=== PATIENT | male | born 1960 | race Caucasian/White ===

== ENCOUNTER 2017-11-16 21:38 | Emergency (ER) | payer OTHER ==
--- NOTE | 2017-11-16 22:19 | ER Document Report ---
HPI - HPI Patient complains to provider of: Blood draw Onset: Other - Patient was injured at work his blood was on a box that another person was exposed to. Quality of pain: No pain Pain Level: Denies Associated Symptoms: None Exacerbated by: Denies Relieved by: Denies Similar symptoms previously: No Recently seen / treated by doctor: No - ROS ROS below otherwise negative: Yes - CONSTITUTIONAL Constitutional: DENIES: Fever, Chills - EENT EENT: DENIES: Sore Throat, Ear Pain, Nasal Drainage-Clear, Nasal Drainage- Purulent, Congestion, Eye problems - NEURO Neurology: DENIES: Headache, Weakness, Vision blurred, Dizzinesss / Vertigo - CARDIOVASCULAR Cardiovascular: DENIES: Chest pain - RESPIRATORY Respiratory: DENIES: Trouble Breathing, Coughing - GASTROINTESTINAL Gastrointestinal: DENIES: Abdominal Pain, Nausea, Patient vomiting, Diarrhea, Constipation, Black / Bloody Stools - REPRODUCTIVE Reproductive: DENIES: :, Postmenopausal, Abnormal bleeding / discharge - MUSCULOSKELETAL Musculoskeletal: DENIES: Extremity pain, Back Pain, Neck Pain, Swelling - DERM Skin Color: Normal Skin Problems: None Past Medical History - General Information source: Patient - Social History Smoking Status: Current Every Day Smoker Cigarette use (# per day): Yes - 2 packs per day Chew tobacco use (# tins/day): No Smoking Education Provided: Yes - 4 minutes Frequency of alcohol use: Heavy - Several beer a day Drug Abuse: None Occupation: [employer] Lives with: Family Family History: Reviewed & Not Pertinent Patient has suicidal ideation: No Patient has homicidal ideation: No - Past Medical History Cardiac Medical History: Reports: None Pulmonary Medical History: Reports: None EENT Medical History: Reports: None Neurological Medical History: Reports: None Endocrine Medical History: Reports: None Renal/ Medical History: Reports: None Malignancy Medical History: Reports None GI Medical History: Reports: None Musculoskeltal Medical History: Reports Hx Musculoskeletal Trauma - Back injury Skin Medical History: Reports None Psychiatric Medical History: Reports: None Traumatic Medical History: Reports: None Infectious Medical History: Reports: None Surgical Hx: Negative Past Surgical History: Reports: None Vertical Provider Document - CONSTITUTIONAL Agree With Documented VS: Yes Exam Limitations: No Limitations General Appearance: WD/WN - INFECTION CONTROL TRAVEL OUTSIDE OF THE [place] IN LAST 30 DAYS: No - HEENT HEENT: Atraumatic, Normal ENT Exam, PERRLA - NECK Neck: Normal Inspection, Supple - RESPIRATORY Respiratory: Breath Sounds Normal, No Respiratory Distress - CARDIOVASCULAR Cardiovascular: Regular Rate, Regular Rhythm - MUSCULOSKELETAL/EXTREMETIES Musculoskeletal/Extremeties: MAEW, FROM, Tender - Small laceration to right ring finger - NEURO Level of Consciousness: Awake, Alert, Appropriate - DERM Integumentary: Warm, Dry, Laceration - Scabbed over sores to arm small laceration to right ring finger Course - Re-evaluation Re-evalutation: 11/16/17 22:29 Patient was sent to the emergency room by Alice to get a HIV test drawn due to him cutting his finger at work today and some blood getting on a box that contaminated another person. Patient does have a small laceration to his right ring finger. This laceration was cleaned with surgical scrub, bacitracin applied, and a Band-Aid applied - Vital Signs Vital signs: Temp Pulse Resp BP Pulse Ox 98.5 F 87 18 142/80 H 96 11/16/17 21:42 11/16/17 21:42 11/16/17 21:42 11/16/17 21:42 11/16/17 21:42 Discharge - Discharge Clinical Impression: Blood draw Laceration of right ring finger Qualifiers: Encounter type: initial encounter Damage to nail status: without damage Foreign body presence: without foreign body Qualified Code(s): S61.214A - Laceration without foreign body of right ring finger without damage to nail, initial encounter Condition: Stable Disposition: HOME, SELF-CARE Instructions: Family Physicians / Practices Additional Instructions: You were seen today for a blood draw due to exposure to another employee with your blood. You were also seen for your laceration to the right ring finger which was cleaned with soap and water and bacitracin applied NON-SUTURED LACERATION: Your laceration did not require suturing. Some lacerations cannot be sutured because of increased infection risk, while others simply don't need stitches because they are shallow or very short. Your injury should be protected while it heals. Usually complete healing takes 10 to 14 days. Keep the dressing clean and dry, and change it every day. If you notice increasing pain, redness, swelling, drainage, or tender lumps in the armpit or groin above the injury, infection may be present. You should call the doctor at once. SOAP CLEANSING: Gently wash the wound daily using a mild soap (like Ivory, Phisoderm, Neutrogena). Use warm water, rubbing gently until all debris, ooze, and crusting have been washed from the wound. Allow to dry briefly (about 10 minutes) after cleaning. Repeat this cleansing at least three times a day for the first two days and then once or twice a day. ANTIBIOTIC OINTMENT PROTECTION: Your wounds are such that dressing them is not practical or optional. After cleansing, you should apply a thin coating of antibiotic ointment ( Bacitracin, not Neosporin) to the wounds at least three times daily. This lessens infection risk, and may decrease the amount of scarring. Use a q-tip or dull butter knife, not your finger, to apply this ointment. Any debris or ooze which builds up in the ointment should be gently rubbed off with a sterile gauze pad. Harder crusting may need to be gently scrubbed off with a clean wash cloth with soap and warm water, perhaps applying a warm, wet wash cloth to the wound for ten minutes first. Development of redness, severe itching, or blistering may mean allergy to the ointment. See the doctor. FOLLOW-UP CARE: If you have been referred to a physician for follow-up care, call the physician s office for an appointment as you were instructed or within the next two days. If you experience worsening or a significant change in your symptoms, notify the physician immediately or return to the Emergency Department at any time for re-evaluation. Forms: Elevated Blood Pressure, Smoking Cessation Education, Return to Work
[2017-11-16] MEDS ORDERED: DIPH/PERTUSS(ACELL)/TETANUS VAC/PF 0.5 ML SYR (>=10YO) IM ONE (22:28)
[2017-11-16 23:30] VITALS: BP 125/74
== END 2017-11-16 23:30 | disposition home or self-care (01) ==
LOC: ER 21:38
DX: Z04.2 Encounter for examination and observation following work accident (principal); S61.214A Laceration without foreign body of right ring finger without damage to nail, initial encounter; W45.8XXA Other foreign body or object entering through skin, initial encounter; Z23 Encounter for immunization; Y99.0 Civilian activity done for income or pay
CPT/HCPCS: 36415; 86701; 90471; 90715; 99283; 99406

== ENCOUNTER 2019-04-22 15:44 | Emergency (ER) | payer SELFPAY ==
[2019-04-22] MEDS: NITROGLYCERIN 0.4 MG/TAB 25 TAB/BOTTLE SL PRN ×2 (16:01→16:08)
[2019-04-22] MEDS ORDERED: ASPIRIN 81 MG TABLET, CHEWABLE PO ONE (16:01)
--- NOTE | 2019-04-22 16:02 | ER Document Report ---
ED Medical Screen (RME) - General Chief Complaint: Chest Pain Stated Complaint: CHEST PAIN Time Seen by Provider: 04/22/19 15:50 TRAVEL OUTSIDE OF THE [place] IN LAST 30 DAYS: No - HPI Notes: 04/22/19 16:01 Patient is a 58-year-old male complaining of chest pain. I was brought an EKG that showed a STEMI and immediately brought the EKG to Dr. Brown. We brought the patient thereafter to trauma 2. I have treated and performed a rapid initial assessment of this patient. A comprehensive ED assessment and evaluation of the patient, analysis of test results and completion of medical decision making process will be conducted by additional ED providers. PHYSICAL EXAMINATION: GENERAL: Well-appearing, well-nourished and in no acute distress. A&Ox4. Answers questions appropriately. - Related Data Allergies/Adverse Reactions: No Known Allergies Allergy (Verified 04/22/19 15:49) Past Medical History Renal/ Medical History: Denies: Hx Peritoneal Dialysis Musculoskeltal Medical History: Reports Hx Musculoskeletal Trauma - Back injury Physical Exam - Vital signs Vitals: Temp Pulse BP Pulse Ox 97.7 F 85 137/84 H 100 04/22/19 15:55 04/22/19 15:55 04/22/19 15:55 04/22/19 15:55 Course - Vital Signs Vital signs: Temp Pulse Resp BP Pulse Ox 97.7 F 85 137/84 H 100 04/22/19 15:55 04/22/19 15:55 04/22/19 15:55 04/22/19 15:55
[2019-04-22] MEDS ORDERED: ONDANSETRON HCL INJ/PF 4 MG/2 ML SDV ONE (16:13)
--- NOTE | 2019-04-22 16:19 | RADIOLOGY REPORT (SQ) ---
EXAM DESCRIPTION: CHEST SINGLE VIEW COMPLETED DATE/TIME: 04/22/2019 4:09 pm REASON FOR STUDY: CP COMPARISON: None. EXAM PARAMETERS: NUMBER OF VIEWS: One view. TECHNIQUE: Single frontal radiographic view of the chest acquired. RADIATION DOSE: NA LIMITATIONS: None. FINDINGS: LUNGS AND PLEURA: No opacities, masses or pneumothorax. No pleural effusion. MEDIASTINUM AND HILAR STRUCTURES: No masses. Contour normal. HEART AND VASCULAR STRUCTURES: Heart normal in size. Normal vasculature. BONES: No acute findings. HARDWARE: None in the chest. OTHER: No other significant finding. IMPRESSION: NO ACUTE RADIOGRAPHIC FINDING IN THE CHEST. TECHNICAL DOCUMENTATION: JOB ID: [id number] [employer]- All Rights Reserved Reading location - IP/workstation name: [email or web address]
[2019-04-22 16:21] LABS: INTERNATIONAL RATION (INR) 0.95; PROTHROMBIN TIME 12.7 SEC (11.4-15.4)
[2019-04-22 16:22] LABS: ABSOLUTE BASOPHILS # (AUTO) 0.1 10^3/uL (0.0-0.2); ABSOLUTE LYMPHOCYTES (AUTO) 1.4 10^3/uL (0.5-4.7); ABSOLUTE MONOCYTES (AUTO) 0.6 10^3/uL (0.1-1.4); ABSOLUTE NEUT (AUTO) 8.3 10^3/uL (1.7-8.2); BASOPHILS % (AUTO) 0.6 % (0-2); EOSINOPHILS % (AUTO) 0.2 % (0-6); HEMATOCRIT 44.5 % (37.9-51.0); HEMOGLOBIN 15.3 g/dL (13.5-17.0); LYMPHOCYTES % (AUTO) 13.8 % (13-45); MEAN CORPUSCULAR HGB CONC 34.5 g/dL (32.0-36.0); MEAN CORPUSCULAR VOLUME 105 fl (80-97); MONOCYTES % (AUTO) 5.7 % (3-13); PARTIAL THROMBOPLASTIN TIME 27.3 SEC (23.5-35.8); PLATELET COUNT 210 10^3/uL (150-450); RED BLOOD COUNT 4.25 10^6/uL (4.35-5.55); SEGMENTED NEUTROPHILS % (AUTO) 79.7 % (42-78); TOTAL CELLS COUNTED % (AUTO) 100 %; WHITE BLOOD COUNT 10.5 10^3/uL (4.0-10.5)
[2019-04-22] MEDS ORDERED: NORMAL SALINE 250 ML IV ONE ×2 (16:29→16:31)
[2019-04-22] MEDS ORDERED: HEPARIN SOD (PORCINE) 1,000 UNIT/ML 10 ML VIAL IV ONE (16:31)
[2019-04-22] MEDS ORDERED: TENECTEPLASE INJ 50 MG KIT IV ONE (16:33)
[2019-04-22] MEDS ORDERED: ONDANSETRON HCL INJ/PF 4 MG/2 ML SDV IV ONE (16:35)
[2019-04-22] MEDS ORDERED: HEPARIN SOD (PORCINE) 5,000 UNIT/ML 1 ML VIAL ONE (16:36)
[2019-04-22 16:40] LABS: ALBUMIN 4.9 g/dL (3.5-5.0); ALKALINE PHOSPHATASE 82 U/L (38-126); ANION GAP 13 (5-19); ASPARTATE AMINO TRANSFERASE 36 U/L (17-59); BILIRUBIN,DIRECT 0.2 mg/dL (0.0-0.4); BILIRUBIN,TOTAL 0.6 mg/dL (0.2-1.3); BLOOD UREA NITROGEN 14 mg/dL (7-20); CALCIUM 10.2 mg/dL (8.4-10.2); CARBON DIOXIDE 26 mmol/L (22-30); CHLORIDE 99 mmol/L (98-107); GLUCOSE 171 mg/dL (75-110); POTASSIUM 4.3 mmol/L (3.6-5.0); TOTAL PROTEIN 8.5 g/dL (6.3-8.2)
[2019-04-22] MEDS ORDERED: CLOPIDOGREL BISULFATE 300 MG TABLET PO ONE (16:40)
--- NOTE | 2019-04-22 16:42 | ER Document Report ---
ED General - General Chief Complaint: Chest Pain Stated Complaint: CHEST PAIN Time Seen by Provider: 04/22/19 15:50 TRAVEL OUTSIDE OF THE [place] IN LAST 30 DAYS: No - HPI Notes: 58-year-old male without medical history he says he just moved here in the last 2 years does not see doctors & does not take any medications has no allergies p/w for onset of severe burning middle of his chest pain he first noticed ~ nooon lasted ~hr. but on and off now. he says that it does not move anywhere. it is severe 5 out of 5. He denies any (near) passing out. He denies irregular heartbeats. He says the only other time he has been ill or had any change recently was 2 nights ago he woke up and had an episode of vomiting x1 and he noted the chest pressure or burning at that time as well. He otherwise has no notable decrease in exercise tolerance he says no swelling of the extremities or elsewhere. He denies any CHAMBERLAIN or focal neurologic deficits. No fever chills sweats. He denies any cocaine use or erectile dysfunction medications. He is a current 1.5 ppd smoker. denies regular etoh.denies swelling or pain extremities. - Related Data Allergies/Adverse Reactions: No Known Allergies Allergy (Verified 04/22/19 15:49) Home Medications: Patient does not have a PCP . Past Medical History - General Information source: Patient - & - Social History Smoking Status: Current Every Day Smoker - says 1.5 packs a day as of 04-22-19, day found to have inferior posterior STEMI Chew tobacco use (# tins/day): No Frequency of alcohol use: Social Drug Abuse: None Family History: Reviewed & Not Pertinent Patient has suicidal ideation: No Patient has homicidal ideation: No Renal/ Medical History: Denies: Hx Peritoneal Dialysis Musculoskeletal Medical History: Reports Hx Musculoskeletal Trauma - Back injury Review of Systems - Review of Systems Constitutional: No symptoms reported, See HPI EENT: No symptoms reported Cardiovascular: See HPI Respiratory: No symptoms reported Gastrointestinal: No symptoms reported Genitourinary: No symptoms reported Male Genitourinary: No symptoms reported Musculoskeletal: No symptoms reported Skin: No symptoms reported Hematologic/Lymphatic: No symptoms reported Neurological/Psychological: No symptoms reported Physical Exam - Vital signs Vitals: Temp Pulse BP Pulse Ox 97.7 F 85 137/84 H 100 12/12/19 15:55 04/22/19 15:55 04/22/19 15:55 04/22/19 15:55 - Notes Notes: He is alert and oriented, triage vital signs 137/84, 100% room air, 85 HR. He is anxious appearing once we get him into the ED room his heart rate again 86, BP 150/100. SPO2 92% RA. All extremities are warm well perfused radial pulses symmetric bilaterally regular. No edema in the extremities. No evidence of peripheral vascular disease or skin changes. Chest wall is quiet no heaves lifts. No gross murmurs on auscultation. Did not perform bedside echoca rdiogram. - General General appearance: Anxious In distress: Mild - HEENT Head: Normocephalic, Atraumatic Eyes: Normal. No: Pale conjunctiva, Scleral icterus Extraocular movements intact: Yes Pupils: PERRL - Respiratory Respiratory status: No respiratory distress, Other - Placed on 2 L nasal cannula has been in high 90s on SPO2, on room air initially 92% room air. No: Cyanosis Chest status: Nontender. No: Ecchymosis, Pain with cough, Accessory muscle use Breath sounds: Normal - Cardiovascular Murmur: No Pulses: Normal: Radial - Symmetric Normal capillary refill: Yes - Abdominal Inspection: Normal Distension: No: Distended Tenderness: No: Tender, McBurney's point, Maki's sign, Guarding, Rebound Organomegaly: No organomegaly - Back Back: Normal, Nontender - Extremities General upper extremity: Normal inspection General lower extremity: Normal inspection - Neurological Neuro grossly intact: Yes Cognition: Normal Orientation: AAOx4 Yenny Coma Scale Eye Opening: Spontaneous [place] Coma Scale Verbal: Oriented [place] Coma Scale Motor: Obeys Commands Yenny Coma Scale Total: 15 Speech: Normal Motor strength normal: LUE, RUE, LLE, RLE Sensory: Normal - Psychological Associated symptoms: Normal affect, Normal mood Course - Re-evaluation Re-evalutation: initial ecg done in triage shows inferior/anterior STEMI rate 70s. no other ventricular blocks, no ectopy or runs of arrythmia. pr and qtc intervals wnl, voltage otherwise wnl. immediately spoke w/ dr carmelo marmolejo (cards attending at [facility]). agreed, rec lytic, bolus no drip heparin, 300 plavix. i did give NG sl x1 for active CP initially. pt had drop in sbp to 90 w/o changes in mental status, no distress. reviewed ecg seeing not only inferior but anterior involvement. d/c any NG and gave 250cc ivns. bp returned 130-140 systolic. reports took 2 asa this am hrs ago. given in ED 324 chewable asa. BPs 160/100, HR 70-80. pt having active cp. alert, no deviation of mental status while in ED until flight crew arrived to transport to [facility]. i relayed to flight crew initial ECG findings and events of BP drop w/ ng and need for ivf, and to avoid dropping his preload/pressure w/ nitrates again for this reason. helped who was tearful. she will meet crew at [place]. dr panchal called after successfully opening his complete occlusion. reproted doing ok, and his post cath ultrasound overall heart function looking pretty good, so he's hoping for good prognosis. - Vital Signs Vital signs: Temp Pulse Resp BP Pulse Ox 98.1 F 85 12 141/90 H 100 04/22/19 16:56 04/22/19 15:55 04/22/19 16:56 04/22/19 16:56 04/22/19 16:56 - Laboratory Result Diagrams: 04/22/19 16:00 04/22/19 16:00 Laboratory results interpreted by me: 04/22/19 04/22/19 16:00 16:00 RBC 4.25 L MCV 105 H MCH 36.0 H Absolute Neuts (auto) 8.3 H Seg Neutrophils % 79.7 H Glucose 171 H Total Protein 8.5 H Critical Care Note - Critical Care Note Total time excluding time spent on procedures (mins): 60 Discharge - Discharge Clinical Impression: ST elevation (STEMI) myocardial infarction Condition: Critical Disposition: [facility]
--- NOTE | 2019-04-22 16:59 | EKG REPORT ---
SEVERITY:- ABNORMAL ECG - SINUS RHYTHM PROBABLE LVH WITH SECONDARY REPOL ABNRM INFEROPOSTERIOR INFARCT, ACUTE : Confirmed by: Cj De La Fuente MD 22-Apr-2019 16:58:54
--- NOTE | 2019-04-22 16:59 | EKG REPORT ---
SEVERITY:- ABNORMAL ECG - SINUS RHYTHM INFEROPOSTERIOR INFARCT, ACUTE LATERAL LEADS ARE ALSO INVOLVED : Confirmed by: Cj De La Fuente MD 22-Apr-2019 16:58:23
--- NOTE | 2019-04-22 16:59 | EKG REPORT ---
SEVERITY:- ABNORMAL ECG - SINUS RHYTHM ATRIAL PREMATURE COMPLEX INFERIOR INJURY, PROBABLE EARLY ACUTE INFARCT BORDERLINE R WAVE PROGRESSION, ANTERIOR LEADS CONSIDER POSTERIOR WALL INVOLVEMENT LATERAL LEADS ARE ALSO INVOLVED : Confirmed by: Cj De La Fuente MD 22-Apr-2019 16:58:44
[2019-04-22 17:14] VITALS: BP 141/90
--- NOTE | 2019-04-22 20:56 | EKG REPORT ---
SEVERITY:- ABNORMAL ECG - SINUS RHYTHM INFEROPOSTERIOR INFARCT, ACUTE : Confirmed by: Cj De La Fuente MD 22-Apr-2019 20:55:13
== END 2019-04-22 17:05 | disposition short-term general hospital (02) ==
LOC: ER 15:44
DX: I21.09 ST elevation (STEMI) myocardial infarction involving other coronary artery of anterior wall (principal); I21.19 ST elevation (STEMI) myocardial infarction involving other coronary artery of inferior wall; R07.9 Chest pain, unspecified; F17.200 Nicotine dependence, unspecified, uncomplicated
CPT/HCPCS: 93005; 99285; 96361; 96374; 96375; 36415; 82550; 83735; 85025; 85610; 85730; 80053; 84484; 71045; 93010; J3101; J3490; J1644; J2405; J7050